=== PATIENT | female | born 1985 | race Caucasian/White ===

== ENCOUNTER → 2019-06-13 09:11 | Outpatient (CLI) | payer MEDICAID | END | disposition home or self-care (01) | LOC: D.US 09:11 | PROVIDERS: ATTEND Internal Medicine Gastroenterology | DX: R10.13 Epigastric pain (principal); R12 Heartburn; R14.0 Abdominal distension (gaseous); K58.9 Irritable bowel syndrome, unspecified ==

== ENCOUNTER 2019-07-07 05:37 | Day surgery (SDC) | payer MEDICAID ==
[~2019-07-07] VITALS: Ht 154.9 cm; Wt 74.8 kg
--- NOTE | ~2019-07-07 | OP ---
PATIENT NAME: SIDDHARTH NGUYỄN MEDICAL RECORD: [id number] :89 LOCATION:D.OPS ADMISSION DATE: SURGEON: JUAN MERCADO MD DATE OF OPERATION: 07/07/2019 PREOPERATIVE DIAGNOSES: 1. Gallstones. 2. Gastritis. POSTOPERATIVE DIAGNOSES: 1. Gallstones. 2. Gastritis. PROCEDURE: Laparoscopic cholecystectomy. SURGEON: Juan Mercado MD REPORT OF PROCEDURE: The patient's abdomen was prepped and draped in sterile fashion. A cutdown was made on the superior aspect of the umbilicus, 0 Vicryls were placed in the fascia bilaterally and the fascia was incised with 15-blade. I then bluntly entered the peritoneal cavity and placed a 12-mm Obie port. Under direct visualization, a 5-mm trocar was placed in the epigastrium and two more 5-mm trocars were placed in the right subcostal region. The gallbladder was grasped and elevated. The cystic artery and cystic duct were dissected free. These structures were clipped proximally and distally and ligated in standard fashion. The gallbladder was then taken off the liver bed using electrocautery and placed into the right upper quadrant. Any bleeding from the liver bed was then treated with electrocautery. We irrigated out the right upper quadrant and assured there was no sign of any bleeding or bile leakage. At this point, the ports and insufflation were then removed and the gallbladder was taken out through the umbilicus. The umbilical fascia was closed with interrupted 0 Vicryls times 3. The wounds were then irrigated out with normal saline and infused with 10 mL of 0.25% Marcaine with epinephrine. The skin incisions were all closed with subcutaneous 5-0 Monocryl and dressed appropriately. COMPLICATIONS: None. CONDITION: Stable. ANESTHESIA: General endotracheal and local. BLOOD LOSS: Minimal. TRANSINT:[id number] Voice Confirmation ID: [id number] DOCUMENT ID: [id number] JUAN MERCADO MD CC: ROYCE WILLIAM MD [id number] DICTATION DATE: 07/07/1943 OUTPATIENT CLERK: 07/07/1947 [facility] [address] [place] [address]
[~2019-07-07 05:37] MED LIST: CYCLOBENZAPRINE10 MG PO
[2019-07-07 05:49] LABS: BASOPHILS 0.2 % (0-2); EOSINOPHILS 8.6 % (0-7); HEMOGLOBIN 14.1 g/dL (12-16); IMMATURE GRANULOCYTES 0.2 % (0-5); MCHC 35.3 g/dL (31.0-37.0); MCV 90.9 fL (80.0-100.0); MEAN PLATELET VOLUME 9.1 fL (7.4-10.4); MONOCYTES 7.5 % (2-11); NEUTROPHILS 51.5 % (40-80); PLATELET COUNT 451 10x3/uL (130-400); WBC 8.3 10x3/uL (4.8-10.8)
[2019-07-07 06:18] LABS: CALC OSMOLALITY 273 mosm/kg (275-300); CALCIUM 9.4 mg/dL (8.5-10.1); CARBON DIOXIDE 27.5 mmol/L (21.0-32.0); CHLORIDE - SERUM 102 mmol/L (98-107); CREATININE - SERUM 0.7 mg/dL (0.6-1.3); GLUCOSE 110 mg/dL (74-106); POTASSIUM - SERUM 4.1 mmol/L (3.5-5.1); SODIUM 137 mmol/L (136-145); UREA NITROGEN 11 mg/dL (7-18); eGFR NON AFRICAN AMERICAN > 90 mL/min (90-120)
[2019-07-07 06:20] VITALS: BP 118/75; Ht 154.9 cm; Wt 74.8 kg
[2019-07-07] MEDS ORDERED: HYDROCODON-ACE1 EA10 PO (08:38)
--- NOTE | 2019-07-07 09:30 | NUR ---
SCOPE PATCH BEHIND LEFT EAR ON ADMIT
--- NOTE | 2019-07-07 10:38 | NUR ---
DC INSTRUCTIONS GIVEN TO PT. STATES UNDERSTANDING. WILL CONTINUE TO MONITOR.
--- NOTE | 2019-07-07 10:57 | NUR ---
DC'D IV CATH FULLY INTACT BY ADRY Leung RN.
--- NOTE | 2019-07-07 11:01 | NUR ---
PT LEFT UNIT VIA WC AT 1101
== END 2019-07-07 11:01 | disposition home or self-care (01) ==
LOC: D.OPS 05:37
PROVIDERS: ATTEND Surgery
DX: K80.20 Calculus of gallbladder without cholecystitis without obstruction (principal); K29.70 Gastritis, unspecified, without bleeding; F17.290 Nicotine dependence, other tobacco product, uncomplicated